=== PATIENT | male | born 1955 | race Caucasian/White ===

== ENCOUNTER 2018-11-13 09:03 | Day surgery (SDC) | payer MEDICARE, BC ==
[~2018-11-13] VITALS: Ht 180.3 cm; Wt 78.7 kg
[~2018-11-13 09:03] MED LIST: CYCL10 PO; NAPR500 PO; OXYACE5T PO
== END 2018-11-13 11:45 | disposition home or self-care (01) ==
LOC: ORSCSDS 09:03
PROVIDERS: Internal Medicine Gastroenterology
PROC: 0DBM8ZX Excision of Descending Colon, Via Natural or Artificial Opening Endoscopic, Diagnostic (ICD-10-PCS; principal; 2018-11-13 10:30)
DX: Z12.11 Encounter for screening for malignant neoplasm of colon (principal); Z83.71 Family history of colonic polyps; K57.30 Diverticulosis of large intestine without perforation or abscess without bleeding; D12.2 Benign neoplasm of ascending colon
CPT/HCPCS: 88305; J2704; J7120

== ENCOUNTER → 2022-07-05 | Outpatient (CLI) | payer MEDICARE, BC ==
[2022-07-05 11:02] LABS: BASOPHILS ABSOLUTE AUTO 0.02 K/mm3 (0.00-0.23); BASOPHILS PERCENT AUTO 0 % (0-2); EOSINOPHILS ABSOLUTE AUTO 0.12 K/mm3 (0.00-0.68); EOSINOPHILS PERCENT AUTO 2 % (0-6); Hematocrit 39.2 % (37.0-53.0); Hemoglobin 13.2 g/dL (13.5-17.5); IMMATURE GRAN ABSOLUTE AUTO 0.02 K/mm3 (0.00-0.10); IMMATURE GRAN PERCENT AUTO 0 % (0-1); LYMPHOCYTES ABSOLUTE AUTO 1.35 K/mm3 (0.84-5.20); LYMPHOCYTES PERCENT AUTO 27 % (21-46); MONOCYTES PERCENT AUTO 8 % (4-13); Mean Corpuscular HGB 29.7 pg (26.0-34.0); Mean Corpuscular HGB Conc 33.7 g/dL (31.5-36.5); Mean Corpuscular Volume 88 fL (80-100); Mean Platelet Volume 10.5 fL (9.1-12.4); NEUTROPHILS ABSOLUTE AUTO 3.01 K/mm3 (1.96-9.15); NEUTROPHILS PERCENT AUTO 61 % (41-73); Platelet Count 249 K/mm3 (150-400); RDW Coefficient Variation 12.4 % (11.7-14.2); RDW Standard Deviation 39.8 fL (35.1-46.3); Red Blood Cell Count 4.44 M/mm3 (4.30-5.90); White Blood Cell Count 4.92 K/mm3 (4.00-11.30)
[2022-07-05 11:28] LABS: Alanine Aminotransfer (ALT/SGP 23 U/L (12-78); Albumin, Blood 3.6 g/dL (3.4-5.0); Albumin/Globulin Ratio 0.9 (0.8-1.8); Alk Phos 43 U/L (50-136); Anion Gap 2 mmol/L (6-16); Aspartate Aminotrans (AST/SGOT 15 U/L (12-37); Bilirubin, Total 0.4 mg/dL (0.1-1.0); Blood Urea Nitrogen 18 mg/dL (8-24); Bun/Creatinine Ratio 20.7 (12.0-20.0); CHOL/HDL RATIO 4.8; CO2, Blood 29 mmol/L (21-32); Calcium, Blood 9.4 mg/dL (8.5-10.1); Chloride, Blood 107 mmol/L (98-108); Cholesterol 177 mg/dL (50-200); Creatinine, Blood 0.87 mg/dL (0.60-1.20); Free Thyroxine 0.93 ng/dL (0.70-1.60); Glomerular Filtration Rate 93 (60-); Glucose, Blood 105 mg/dL (70-99); HDL Cholesterol 37 mg/dL (>39); LDL/HDL RATIO 3.3; Low Density Lipoprotein Chol 123 mg/dL (0-110); Potassium, Blood 4.3 mmol/L (3.5-5.5); Sodium, Blood 138 mmol/L (136-145); Total Protein, Blood 7.6 g/dL (6.4-8.2); Triglycerides 83 mg/dL (30-160); Very Low Density Lipoprot Chol 16 mg/dL (6-32)
== END ==
LOC: LAB SHORT 10:08 → LAB 10:08
PROVIDERS: Family Medicine
DX: Z00.00 Encounter for general adult medical examination without abnormal findings (principal); E78.49 Other hyperlipidemia; N42.9 Disorder of prostate, unspecified; R53.83 Other fatigue
CPT/HCPCS: 80053; 80061; 84153; 84439; 84443; 85025

== ENCOUNTER → 2022-08-09 | Outpatient (CLI) | payer MEDICARE, BC | END | disposition home or self-care (01) | LOC: LAB 14:05 → LAB SHORT 14:05 | DX: M65.262 Calcific tendinitis, left lower leg (principal); M65.261 Calcific tendinitis, right lower leg | CPT/HCPCS: 85651; 86140; 86430 ==

== ENCOUNTER → 2022-10-18 | Outpatient (CLI) | payer MEDICARE, BC | LOC: LAB SHORT 11:34 → LAB 11:34 | DX: M35.3 Polymyalgia rheumatica (principal) | CPT/HCPCS: 85651; 86140 ==